=== PATIENT | male | born 1940 | race Caucasian/White ===

== ENCOUNTER 2018-01-29 07:54 | Emergency (ER) | payer MEDICARE, MEDICAID ==
[2018-01-29] MEDS ORDERED: Aspirin 81 MG Tab.Chew PO ONE (08:01)
[2018-01-29] MEDS ORDERED: Sodium Chloride 0.9% 10 ML Syringe FLUSH PRN (08:13)
[2018-01-29] MEDS ORDERED: Nitroglycerin 0.4 MG Tab.SL SL ONE ×3 (08:15→09:09)
--- NOTE | 2018-01-29 08:25 | EDM.PDOC ---
ED HPI GENERAL MEDICAL PROBLEM - General Chief Complaint: Chest Pain Stated Complaint: CHEST PAIN Time Seen by Provider: 01/29/18 08:00 Source of Information: Reports: Patient, Old Records History Limitations: Reports: No Limitations - History of Present Illness INITIAL COMMENTS - FREE TEXT/NARRATIVE: Justin comes to [facility] ED with a 14 hour hx of precordial chest pain that began while riding in a car as a passenger. The pain was substernal and epigastric rated 7-8/10, with some SOB but no palpitations or sweats. He took 1 TNG sl which improved pain to a 6/10, but took no additional tabs or ASA overnight. His pain was still present this am, associated with small emesis x 3 and malaise , prompting him to come to the ED. Upon arrival, a 12 lead ekg noted NSR with occ PVC, and minimal ST seg elevation in anterior leads. BP 179/87, VR 90, Temp 98 02 sat 100%. He was administered TNG sl x3, painfree within 45 minutes. MID CHEST Pain Score (Numeric/FACES): 7 - Related Data Allergies Allergy/AdvReac Type Severity Reaction Status Date / Time No Known Allergies Allergy Verified 01/29/18 08:01 Home Meds: Home Meds Amiodarone [Cordarone] 400 mg PO DAILY 03/06/16 [History] Aspirin 81 mg PO DAILY 03/06/16 [History] Cholecalciferol (Vitamin D3) [Vitamin D3] 1 tab PO BEDTIME 03/06/16 [History] Clopidogrel [Plavix] 75 mg PO DAILY 03/06/16 [History] Enalapril Maleate 1 tab PO BID 03/06/16 [History] Ferrous Sulfate 1 tab PO BEDTIME 03/06/16 [History] Fluticasone Propionate [Flonase] 50 mcg NASBOTH BID 03/06/16 [History] Isosorbide Mononitrate [Imdur] 30 mg PO DAILY 03/06/16 [History] Magnesium Oxide 400 mg PO BID #30 tab 03/06/16 [Rx] Multivitamin with Minerals [Multiple Vitamin] 1 tab PO BEDTIME 03/06/16 [History ] Nitroglycerin [Nitrostat] 0.4 mg PO ONETIME 03/06/16 [History] Pregabalin [Lyrica] 1 cap PO BID 03/06/16 [History] Sodium Chloride [Saline Nasal Forsan] 1 spray NASBOTH BID PRN 03/06/16 [History] amLODIPine [Norvasc] 1 tab PO DAILY 03/06/16 [History] atorvaSTATin [Lipitor] 40 mg PO BEDTIME 03/06/16 [History] metFORMIN [Glucophage] 1 tab PO BID 03/06/16 [History] Past Medical History Cardiovascular History: Reports: Blood Clots/VTE/DVT, CAD, SOB on Exertion Endocrine/Metabolic History: Reports: Diabetes, Type II, Other (See Below) Other Endocrine/Metabolic History: Pt stated he is a diet controlled diabetic - Past Surgical History Cardiovascular Surgical History: Reports: Cardiac Ablation ED ROS GENERAL - Review of Systems Review Of Systems: See Below Constitutional: Reports: Malaise, Decreased Appetite HEENT: Reports: No Symptoms Respiratory: Reports: No Symptoms Cardiovascular: Reports: Chest Pain, Dyspnea on Exertion (believed related to obesity and poor exercise tolerance), Edema (chronic) Endocrine: Reports: No Symptoms GI/Abdominal: Reports: Nausea, Vomiting : Reports: No Symptoms Musculoskeletal: Reports: No Symptoms Skin: Reports: No Symptoms Neurological: Reports: No Symptoms Psychiatric: Reports: No Symptoms Hematologic/Lymphatic: Reports: No Symptoms Immunologic: Reports: No Symptoms ED EXAM, GENERAL - Physical Exam Exam: See Below Exam Limited By: No Limitations General Appearance: Alert, WD/WN, Mild Distress, Obese Eye Exam: Bilateral Eye: EOMI, Normal Inspection, PERRL Ears: Normal External Exam Nose: Normal Inspection Throat/Mouth: Normal Inspection, Normal Oropharynx, Normal Voice Head: Normocephalic Neck: Normal Inspection, Supple, Non-Tender, Full Range of Motion Respiratory/Chest: Lungs Clear, Normal Breath Sounds, Chest Non-Tender Cardiovascular: Regular Rate, Rhythm, No Murmur, Extra Beats GI/Abdominal: Normal Bowel Sounds, Soft, Non-Tender, No Organomegaly, No Distention, No Mass (Male) Exam: Deferred Rectal (Males) Exam: Deferred Back Exam: Normal Inspection Extremities: Pedal Edema, Other (chronic stasis changes in both LE, scars from prior venous surgeries) Neurological: Alert, Oriented, CN II-XII Intact, Normal Cognition, Normal Gait, No Motor/Sensory Deficits Psychiatric: Normal Affect, Normal Mood Skin Exam: Warm, Dry, Intact Lymphatic: No Adenopathy Course - Vital Signs Text/Narrative:: Following assessment at the [facility] ED, an IV was inserted into the LUE, TNG x 3 sl produced pain remission within 45 minutes, ASA 81 mg x 4 administered. A chest x ray noted no active infiltrates, normal cardiac size; cbc noted Hgb 13.8 gm, WBC 8700, plts normal; CMP noted Na136, K 3.6, Cr 1.4, BUN 17, non FBS 219 mg%; Troponin I 0.019, BNP 412, d dimer 350. Case discussed with Dr Mckinney at [facility] regarding transfer for further assessment and Cardiology consultation. Patient is in agreement with plan. Last Recorded V/S: Last Vital Signs Temp 36.3 C 01/29/18 08:00 Pulse 93 01/29/18 08:00 Resp 17 01/29/18 08:00 BP 137/82 01/29/18 08:40 Pulse Ox 100 01/29/18 08:00 - Orders/Labs/Meds Orders: Active Orders 24 hr Category Date Time Status Chest 1V Frontal [CR] Stat Exams 01/29/18 08:13 Taken UA W/MICROSCOPIC [URIN] Stat Lab 01/29/18 09:00 Ordered Sodium Chloride 0.9% [Saline Flush] Med 01/29/18 08:13 Active 10 ml FLUSH ASDIRECTED PRN Peripheral IV Insertion Adult [OM.PC] Routine Oth 01/29/18 08:13 Ordered EKG 12 Lead [EK] Routine Ther 01/29/18 08:05 Ordered Medication Orders Sodium Chloride (Saline Flush) 10 ml FLUSH ASDIRECTED PRN PRN Reason: Keep Vein Open Last Admin: 01/29/18 08:08 Dose: 10 ml Labs: Laboratory Tests 01/29/18 01/29/18 01/29/18 Range/Units 08:15 08:15 08:15 WBC 8.7 (4.5-12.0) X10-3/uL RBC 4.45 (4.30-5.75) x10(6)uL Hgb 13.8 (11.5-15.5) g/dL Hct 41.4 (30.0-51.3) % MCV 92.8 (80-96) fL MCH 30.9 (27.7-33.6) pg MCHC 33.3 (32.2-35.4) g/dL RDW 13.6 (11.5-15.5) % Plt Count 213 (125-369) X10(3)uL MPV 8.5 (7.4-10.4) fL Neut % (Auto) 84.5 H (46-82) % Lymph % (Auto) 11.3 L (13-37) % Coal % (Auto) 3.8 L (4-12) % Eos % (Auto) 0 L (1.0-5.0) % Baso % (Auto) 0 (0-2) % Neut # (Auto) 7.4 (1.6-8.3) # Lymph # (Auto) 1.0 (0.6-5.0) # Coal # (Auto) 0.3 (0.0-1.3) # Eos # (Auto) 0.0 (0.0-0.8) # Baso # (Auto) 0.0 (0.0-0.2) # D-Dimer, Quantitative 350 (100-400) ng/mL Sodium 136 (135-145) mmol/L Potassium 3.6 (3.5-5.3) mmol/L Chloride 96 L (100-110) mmol/L Carbon Dioxide 26 (21-32) mmol/L BUN 17 (7-18) mg/dL Creatinine 1.4 H (0.70-1.30) mg/dL Est Cr Clr Drug Dosing 46.32 mL/min Estimated GFR (MDRD) 49 L (>60) BUN/Creatinine Ratio 12.1 (9-20) Glucose 219 H (80-116) mg/dL Calcium 9.2 (8.6-10.2) mg/dL Total Bilirubin 1.5 H (0.1-1.3) mg/dL AST 22 (5-25) IU/L ALT 28 (12-36) U/L Alkaline Phosphatase 78 (56-112) IU/L Troponin I (<0.017-0.056) ng/mL NT-Pro-B Natriuret Pep (<=450) pg/mL Total Protein 7.8 (6.0-8.0) g/dL Albumin 4.0 (3.2-4.6) g/dL Globulin 3.8 g/dL Albumin/Globulin Ratio 1.1 Urine Color (YELLOW) Urine Appearance (CLEAR) Urine pH (5.0-6.5) Ur Specific [place] (1.010-1.025) Urine Protein (NEGATIVE) mg/dL Urine Glucose (UA) (NEGATIVE) mg/dL Urine Ketones (NEGATIVE) mg/dL Urine Occult Blood (NEGATIVE) Urine Nitrite (NEGATIVE) Urine Bilirubin (NEGATIVE) Urine Urobilinogen (NEGATIVE) mg/dL Ur Leukocyte Esterase (NEGATIVE) Urine RBC (0) Urine WBC (0) Ur Squamous Epith Cells (NS,R,O) Urine Bacteria (NS) 01/29/18 01/29/18 Range/Units 08:15 09:00 WBC (4.5-12.0) X10-3/uL RBC (4.30-5.75) x10(6)uL Hgb (11.5-15.5) g/dL Hct (30.0-51.3) % MCV (80-96) fL MCH (27.7-33.6) pg MCHC (32.2-35.4) g/dL RDW (11.5-15.5) % Plt Count (125-369) X10(3)uL MPV (7.4-10.4) fL Neut % (Auto) (46-82) % Lymph % (Auto) (13-37) % Coal % (Auto) (4-12) % Eos % (Auto) (1.0-5.0) % Baso % (Auto) (0-2) % Neut # (Auto) (1.6-8.3) # Lymph # (Auto) (0.6-5.0) # Coal # (Auto) (0.0-1.3) # Eos # (Auto) (0.0-0.8) # Baso # (Auto) (0.0-0.2) # D-Dimer, Quantitative (100-400) ng/mL Sodium (135-145) mmol/L Potassium (3.5-5.3) mmol/L Chloride (100-110) mmol/L Carbon Dioxide (21-32) mmol/L BUN (7-18) mg/dL Creatinine (0.70-1.30) mg/dL Est Cr Clr Drug Dosing mL/min Estimated GFR (MDRD) (>60) BUN/Creatinine Ratio (9-20) Glucose (80-116) mg/dL Calcium (8.6-10.2) mg/dL Total Bilirubin (0.1-1.3) mg/dL AST (5-25) IU/L ALT (12-36) U/L Alkaline Phosphatase (56-112) IU/L Troponin I 0.019 (<0.017-0.056) ng/mL NT-Pro-B Natriuret Pep 412 (<=450) pg/mL Total Protein (6.0-8.0) g/dL Albumin (3.2-4.6) g/dL Globulin g/dL Albumin/Globulin Ratio Urine Color Yellow (YELLOW) Urine Appearance Clear (CLEAR) Urine pH 7.0 H (5.0-6.5) Ur Specific [place] 1.005 L (1.010-1.025) Urine Protein Negative (NEGATIVE) mg/dL Urine Glucose (UA) 250 H (NEGATIVE) mg/dL Urine Ketones 15 H (NEGATIVE) mg/dL Urine Occult Blood Negative (NEGATIVE) Urine Nitrite Negative (NEGATIVE) Urine Bilirubin Negative (NEGATIVE) Urine Urobilinogen Normal (NEGATIVE) mg/dL Ur Leukocyte Esterase Negative (NEGATIVE) Urine RBC Not seen (0) Urine WBC 0-5 (0) Ur Squamous Epith Cells Rare (NS,R,O) Urine Bacteria Rare H (NS) Meds: Medications Generic Name Dose Route Start Last Admin Trade Name Arpit PRN Reason Stop Dose Admin Sodium Chloride 10 ml 01/29/18 08:13 01/29/18 08:08 Saline Flush FLUSH 10 ml ASDIRECTED PRN Administration Keep Vein Open Discontinued Medications Generic Name Dose Route Start Last Admin Trade Name Arpit PRN Reason Stop Dose Admin Aspirin 324 mg 01/29/18 08:01 01/29/18 08:04 Aspirin PO 01/29/18 08:02 324 mg ONETIME ONE Administration Nitroglycerin 0.4 mg 01/29/18 08:15 01/29/18 08:10 Nitrostat SL 01/29/18 08:16 0.4 mg ONETIME ONE Administration Nitroglycerin 0.4 mg 01/29/18 08:30 01/29/18 08:30 Nitrostat SL 01/29/18 08:31 0.4 mg ONETIME ONE Administration Nitroglycerin 0.4 mg 01/29/18 09:09 01/29/18 08:40 Nitrostat SL 01/29/18 09:10 0.4 mg ONETIME ONE Administration Departure - Departure Time of Disposition: 10:09 Disposition: DC/Tfer to Other 70 Reason for Transfer *Q: Primary PCI Indicated Condition: Fair Clinical Impression: Chest pain due to CAD Instructions: Angina Pectoris, [id number] Referrals: Christina Hurtado, [employer] [Primary Care Provider] - Forms: ED Department Discharge - Problem List & Annotations (1) Chest pain due to CAD SNOMED Code(s): 799394861 Code(s): R07.9 - CHEST PAIN, UNSPECIFIED; I25.10 - ATHSCL HEART DISEASE OF [place] CORONARY ARTERY W/O ANG PCTRS Status: Acute Current Visit: Yes Annotation/Comment:: Transfer to [facility] for assessment and Cardiology consultation - Problem List Review Problem List Initiated/Reviewed/Updated: Yes - My Orders Last 24 Hours: My Active Orders 01/29/18 08:05 EKG 12 Lead [EK] Routine 01/29/18 08:13 Chest 1V Frontal [CR] Stat Sodium Chloride 0.9% [Saline Flush] 10 ml FLUSH ASDIRECTED PRN Peripheral IV Insertion Adult [OM.PC] Routine 01/29/18 09:00 UA W/MICROSCOPIC [URIN] Stat - Assessment/Plan Last 24 Hours: My Active Orders 01/29/18 08:05 EKG 12 Lead [EK] Routine 01/29/18 08:13 Chest 1V Frontal [CR] Stat Sodium Chloride 0.9% [Saline Flush] 10 ml FLUSH ASDIRECTED PRN Peripheral IV Insertion Adult [OM.PC] Routine 01/29/18 09:00 UA W/MICROSCOPIC [URIN] Stat Plan: Follow up with PCP.
[2018-01-29 12:11] VITALS: BP 160/82
--- NOTE | 2018-01-30 11:52 | CR ---
INDICATION: Chest pain. CHEST: Two AP upright views of the chest were obtained 01/29/2018 and compared with 03/06/2016, again revealing the heart to be prominent but not grossly enlarged. The aorta is tortuous with calcification in the arch. Overlying EKG leads are noted. A definite active infiltrate or effusion was not identified. IMPRESSION: No acute process - probable ASHD. MTDD
== END 2018-01-29 11:30 | disposition other institution (70) ==
LOC: FB.ED 07:54
DX: I25.10 Atherosclerotic heart disease of native coronary artery without angina pectoris (principal); E11.9 Type 2 diabetes mellitus without complications; Z79.82 Long term (current) use of aspirin; Z79.899 Other long term (current) drug therapy; Z79.84 Long term (current) use of oral hypoglycemic drugs
CPT/HCPCS: 71045; 80053; 81001; 83880; 84484; 85025; 85379; 93005; 99285; A9270; J7050

== ENCOUNTER 2022-03-08 12:21 | Emergency (ER) | payer MEDICARE, MEDICAID ==
[2022-03-08 12:53] LABS: ESTIMATED GFR 26 (>60)
[2022-03-08] MEDS ORDERED: Potassium Chloride 20 MEQ Tab.ER PO ONE (13:53)
[2022-03-08] MEDS ORDERED: Cephalexin 500 MG Cap PO ONE (14:24)
[2022-03-08 15:40] VITALS: BP 117/61; PULSE 74
== END 2022-03-08 14:55 | disposition home or self-care (01) ==
LOC: FB.ED 12:21
DX: L03.115 Cellulitis of right lower limb (principal); I25.10 Atherosclerotic heart disease of native coronary artery without angina pectoris; E11.9 Type 2 diabetes mellitus without complications; Z79.82 Long term (current) use of aspirin; Z79.899 Other long term (current) drug therapy; Z79.84 Long term (current) use of oral hypoglycemic drugs
CPT/HCPCS: 36415; 71046; 80048; 81001; 84484; 85027; 86140; 99283; A9270; 99285

== ENCOUNTER 2022-03-12 08:30 | Inpatient (IN) | payer MEDICARE, MEDICAID ==
[2022-03-12] MEDS ORDERED: Sodium Chloride 0.9% 10 ML Syringe FLUSH PRN (09:13)
[2022-03-12] MEDS ORDERED: Sodium Chloride 0.9% 500 ML IV ONE (09:17)
[2022-03-12 09:53] LABS: ESTIMATED GFR 28 mL/min (>60)
[2022-03-12] MEDS ORDERED: Haloperidol Lactate 5 MG/ML SDV IM ONE (15:38)
[2022-03-12] MEDS ORDERED: Acetaminophen 325 MG Tab PO PRN (16:06)
[2022-03-12] MEDS ORDERED: Glucagon,Human Recombinant 1 MG Vial IM PRN (16:06)
[2022-03-12] MEDS ORDERED: 50% Dextrose in Water 50 ML Syringe IVPUSH PRN (16:06)
[2022-03-12] MEDS ORDERED: Nitroglycerin 0.4 MG Tab.SL SL PRN (16:06)
[2022-03-12] MEDS ORDERED: Polyethylene Glycol 3350 Powder 17 GM Packet PO PRN (16:06)
[2022-03-12] MEDS ORDERED: Lactulose Soln 10 GM/15 ML 15 ML UD Cup PO PRN (16:06)
[2022-03-12] MEDS ORDERED: Calcium Carbonate 500 MG Tab.Chew PO PRN (16:59)
[2022-03-12] MEDS ORDERED: Insulin Lispro 100 Unit/ML 3 ML KwikPen SUBCUT PRN (17:03)
[2022-03-12] MEDS ORDERED: Enoxaparin 30 MG/0.3 ML Syringe SUBCUT ONE (17:11)
[2022-03-12] MEDS: CEPHALEXIN 500 MG PO SCH ×2 (18:03→20:44)
[2022-03-12] MEDS: Donepezil 10 MG Tab PO SCH (20:41)
[2022-03-12] MEDS: Divalproex Sodium Delayed-Release 250 MG Tab.CR PO SCH (20:42)
[2022-03-12] MEDS: Magnesium Oxide 400 MG Tab PO SCH (20:42)
[2022-03-12] MEDS: atorvaSTATin 40 MG Tab PO SCH (20:43)
[2022-03-12] MEDS: Gabapentin 100 MG Cap PO SCH (20:49)
[2022-03-12] MEDS: Insulin Glargine,Human Rec. Analog 100 Units/ML 3 ML Pen SUBCUT SCH (21:04)
[2022-03-13 06:42] LABS: ESTIMATED GFR 37 mL/min (>60)
[2022-03-13] MEDS: CEPHALEXIN 500 MG PO SCH ×4 (09:59→21:59)
[2022-03-13] MEDS: Tamsulosin 0.4 MG Cap.ER PO SCH (10:00)
[2022-03-13] MEDS: Aspirin 81 MG Tab.Chew PO SCH (10:00)
[2022-03-13] MEDS: Torsemide 20 MG Tab PO SCH (10:02)
[2022-03-13] MEDS: Magnesium Oxide 400 MG Tab PO SCH ×2 (10:03→21:54)
[2022-03-13] MEDS: Gabapentin 100 MG Cap PO SCH ×3 (10:04→21:54)
[2022-03-13] MEDS: Thiamine 100 MG Tab PO SCH (10:05)
[2022-03-13] MEDS: Isosorbide Mononitrate 30 MG Tab.ER PO SCH (10:45)
[2022-03-13] MEDS: Metoprolol Succinate 25 MG Tab.ER PO SCH (10:46)
[2022-03-13] MEDS: Divalproex Sodium Delayed-Release 250 MG Tab.CR PO SCH ×2 (16:44→21:53)
[2022-03-13] MEDS: Enoxaparin 40 MG/0.4 ML Syringe SUBCUT SCH (18:12)
[2022-03-13] MEDS: atorvaSTATin 40 MG Tab PO SCH (21:51)
[2022-03-13] MEDS: Donepezil 10 MG Tab PO SCH (21:51)
[2022-03-13] MEDS: Insulin Glargine,Human Rec. Analog 100 Units/ML 3 ML Pen SUBCUT SCH (22:06)
[2022-03-14] MEDS: Divalproex Sodium Delayed-Release 250 MG Tab.CR PO SCH ×3 (09:59→21:00)
[2022-03-14] MEDS: Torsemide 20 MG Tab PO SCH (09:59)
[2022-03-14] MEDS: Magnesium Oxide 400 MG Tab PO SCH ×2 (10:00→21:01)
[2022-03-14] MEDS: Thiamine 100 MG Tab PO SCH (10:00)
[2022-03-14] MEDS: CEPHALEXIN 500 MG PO SCH ×4 (10:01→21:00)
[2022-03-14] MEDS: Aspirin 81 MG Tab.Chew PO SCH (10:03)
[2022-03-14] MEDS: Metoprolol Succinate 25 MG Tab.ER PO SCH (10:03)
[2022-03-14 10:06] LABS: ESTIMATED GFR 43 mL/min (>60)
[2022-03-14] MEDS: Isosorbide Mononitrate 30 MG Tab.ER PO SCH (10:08)
[2022-03-14] MEDS: Tamsulosin 0.4 MG Cap.ER PO SCH (10:09)
[2022-03-14] MEDS: amLODIPine 5 MG Tab PO SCH (10:16)
[2022-03-14] MEDS: Acetaminophen 500 MG Tab PO SCH ×3 (10:27→21:01)
[2022-03-14] MEDS: Gabapentin 100 MG Cap PO SCH ×3 (10:27→21:07)
[2022-03-14] MEDS: Enoxaparin 40 MG/0.4 ML Syringe SUBCUT SCH (18:57)
[2022-03-14] MEDS: Donepezil 10 MG Tab PO SCH (21:00)
[2022-03-14] MEDS: atorvaSTATin 40 MG Tab PO SCH (21:01)
[2022-03-14] MEDS: Insulin Glargine,Human Rec. Analog 100 Units/ML 3 ML Pen SUBCUT SCH (21:07)
[2022-03-14] MEDS: Haloperidol 5 MG Tab PO PRN (23:28)
[2022-03-15 06:50] LABS: ESTIMATED GFR 37 mL/min (>60)
[2022-03-15] MEDS: Divalproex Sodium Delayed-Release 250 MG Tab.CR PO SCH ×3 (08:20→21:08)
[2022-03-15] MEDS: Haloperidol 5 MG Tab PO PRN ×3 (08:20→23:38)
[2022-03-15] MEDS: Aspirin 81 MG Tab.Chew PO SCH (08:22)
[2022-03-15] MEDS: Torsemide 20 MG Tab PO SCH (08:23)
[2022-03-15] MEDS: Tamsulosin 0.4 MG Cap.ER PO SCH (08:24)
[2022-03-15] MEDS: Magnesium Oxide 400 MG Tab PO SCH ×3 (08:24→21:03)
[2022-03-15] MEDS: Acetaminophen 500 MG Tab PO SCH ×3 (08:25→21:09)
[2022-03-15] MEDS: Thiamine 100 MG Tab PO SCH (08:25)
[2022-03-15] MEDS: Gabapentin 100 MG Cap PO SCH ×3 (08:32→21:18)
[2022-03-15] MEDS: Metoprolol Succinate 25 MG Tab.ER PO SCH (08:38)
[2022-03-15] MEDS: amLODIPine 5 MG Tab PO SCH (08:40)
[2022-03-15] MEDS: Isosorbide Mononitrate 30 MG Tab.ER PO SCH (09:53)
[2022-03-15] MEDS: Enoxaparin 40 MG/0.4 ML Syringe SUBCUT SCH (18:13)
[2022-03-15] MEDS: atorvaSTATin 40 MG Tab PO SCH (21:06)
[2022-03-15] MEDS: Donepezil 10 MG Tab PO SCH (21:20)
[2022-03-15] MEDS: Insulin Glargine,Human Rec. Analog 100 Units/ML 3 ML Pen SUBCUT SCH ×2 (21:28→21:35)
[2022-03-16 07:33] LABS: ESTIMATED GFR 46 mL/min (>60)
[2022-03-16] MEDS: Divalproex Sodium Delayed-Release 250 MG Tab.CR PO SCH ×3 (08:29→21:16)
[2022-03-16] MEDS: Torsemide 20 MG Tab PO SCH (08:30)
[2022-03-16] MEDS: Aspirin 81 MG Tab.Chew PO SCH (08:30)
[2022-03-16] MEDS: Gabapentin 100 MG Cap PO SCH ×3 (08:33→21:14)
[2022-03-16] MEDS: Magnesium Oxide 400 MG Tab PO SCH ×2 (08:33→21:09)
[2022-03-16] MEDS: Isosorbide Mononitrate 30 MG Tab.ER PO SCH (08:33)
[2022-03-16] MEDS: Metoprolol Succinate 25 MG Tab.ER PO SCH (08:34)
[2022-03-16] MEDS: Haloperidol 5 MG Tab PO PRN ×2 (08:35→21:23)
[2022-03-16] MEDS: Thiamine 100 MG Tab PO SCH (08:36)
[2022-03-16] MEDS: Tamsulosin 0.4 MG Cap.ER PO SCH (08:36)
[2022-03-16] MEDS: Acetaminophen 500 MG Tab PO SCH ×3 (08:37→21:10)
[2022-03-16] MEDS: Enoxaparin 40 MG/0.4 ML Syringe SUBCUT SCH (18:54)
[2022-03-16] MEDS: atorvaSTATin 40 MG Tab PO SCH (21:08)
[2022-03-16] MEDS: Donepezil 10 MG Tab PO SCH (21:11)
[2022-03-16] MEDS ORDERED: Insulin Glargine,Human Rec. Analog 100 Units/ML 3 ML Pen SUBCUT ONE (22:10)
[2022-03-16] MEDS: Insulin Glargine,Human Rec. Analog 100 Units/ML 3 ML Pen SUBCUT SCH (22:13)
[2022-03-17] MEDS: Gabapentin 100 MG Cap PO SCH ×3 (08:27→20:52)
[2022-03-17] MEDS: Aspirin 81 MG Tab.Chew PO SCH (08:27)
[2022-03-17] MEDS: Magnesium Oxide 400 MG Tab PO SCH ×2 (08:28→20:52)
[2022-03-17] MEDS: Divalproex Sodium Delayed-Release 250 MG Tab.CR PO SCH ×3 (08:28→20:51)
[2022-03-17] MEDS: Torsemide 20 MG Tab PO SCH (08:28)
[2022-03-17] MEDS: Isosorbide Mononitrate 30 MG Tab.ER PO SCH (08:29)
[2022-03-17] MEDS: Tamsulosin 0.4 MG Cap.ER PO SCH (08:31)
[2022-03-17] MEDS: Thiamine 100 MG Tab PO SCH (08:32)
[2022-03-17] MEDS: Acetaminophen 500 MG Tab PO SCH ×3 (08:32→20:53)
[2022-03-17] MEDS: amLODIPine 5 MG Tab PO SCH (08:33)
[2022-03-17] MEDS: Metoprolol Succinate 25 MG Tab.ER PO SCH (08:36)
[2022-03-17] MEDS: Polyvinyl Alcohol 1.4% Ophth Soln 15 ML Bottle EYEBOTH SCH ×3 (13:53→20:52)
[2022-03-17] MEDS: Enoxaparin 40 MG/0.4 ML Syringe SUBCUT SCH (17:11)
[2022-03-17] MEDS: Donepezil 10 MG Tab PO SCH (20:51)
[2022-03-17] MEDS: atorvaSTATin 40 MG Tab PO SCH (20:51)
[2022-03-17] MEDS: Insulin Glargine,Human Rec. Analog 100 Units/ML 3 ML Pen SUBCUT SCH (20:55)
[2022-03-17] MEDS: Haloperidol 5 MG Tab PO PRN (21:56)
[2022-03-18 06:42] LABS: ESTIMATED GFR 43 mL/min (>60)
[2022-03-18] MEDS: Gabapentin 100 MG Cap PO SCH ×3 (08:10→20:20)
[2022-03-18] MEDS: Divalproex Sodium Delayed-Release 250 MG Tab.CR PO SCH ×3 (08:10→20:18)
[2022-03-18] MEDS: Tamsulosin 0.4 MG Cap.ER PO SCH (08:11)
[2022-03-18] MEDS: Thiamine 100 MG Tab PO SCH (08:11)
[2022-03-18] MEDS: Magnesium Oxide 400 MG Tab PO SCH ×2 (08:11→20:20)
[2022-03-18] MEDS: Aspirin 81 MG Tab.Chew PO SCH (08:11)
[2022-03-18] MEDS: Metoprolol Succinate 25 MG Tab.ER PO SCH (08:12)
[2022-03-18] MEDS: Polyvinyl Alcohol 1.4% Ophth Soln 15 ML Bottle EYEBOTH SCH ×4 (08:13→20:18)
[2022-03-18] MEDS: Torsemide 20 MG Tab PO SCH (08:14)
[2022-03-18] MEDS: Isosorbide Mononitrate 30 MG Tab.ER PO SCH (08:15)
[2022-03-18] MEDS: Acetaminophen 500 MG Tab PO SCH ×3 (08:15→20:19)
[2022-03-18] MEDS: Enoxaparin 40 MG/0.4 ML Syringe SUBCUT SCH (17:15)
[2022-03-18] MEDS: Donepezil 10 MG Tab PO SCH (20:17)
[2022-03-18] MEDS: atorvaSTATin 40 MG Tab PO SCH (20:18)
[2022-03-18] MEDS: Insulin Glargine,Human Rec. Analog 100 Units/ML 3 ML Pen SUBCUT SCH (20:33)
[2022-03-19] MEDS: Aspirin 81 MG Tab.Chew PO SCH (08:18)
[2022-03-19] MEDS: Gabapentin 100 MG Cap PO SCH ×3 (08:18→20:55)
[2022-03-19] MEDS: Torsemide 20 MG Tab PO SCH (08:19)
[2022-03-19] MEDS: Metoprolol Succinate 25 MG Tab.ER PO SCH (08:19)
[2022-03-19] MEDS: Magnesium Oxide 400 MG Tab PO SCH ×2 (08:19→20:52)
[2022-03-19] MEDS: Acetaminophen 500 MG Tab PO SCH ×3 (08:20→20:52)
[2022-03-19] MEDS: Thiamine 100 MG Tab PO SCH (08:22)
[2022-03-19] MEDS: Divalproex Sodium Delayed-Release 250 MG Tab.CR PO SCH ×3 (08:22→20:50)
[2022-03-19] MEDS: Tamsulosin 0.4 MG Cap.ER PO SCH (08:23)
[2022-03-19] MEDS: Isosorbide Mononitrate 30 MG Tab.ER PO SCH (08:24)
[2022-03-19] MEDS: Polyvinyl Alcohol 1.4% Ophth Soln 15 ML Bottle EYEBOTH SCH ×4 (08:24→20:50)
[2022-03-19] MEDS: Polyethylene Glycol 3350 Powder 17 GM Packet PO SCH (10:34)
[2022-03-19] MEDS: Enoxaparin 40 MG/0.4 ML Syringe SUBCUT SCH (17:16)
[2022-03-19] MEDS: Donepezil 10 MG Tab PO SCH (20:49)
[2022-03-19] MEDS: atorvaSTATin 40 MG Tab PO SCH (20:50)
[2022-03-19] MEDS: Insulin Glargine,Human Rec. Analog 100 Units/ML 3 ML Pen SUBCUT SCH (20:51)
[2022-03-20] MEDS: Divalproex Sodium Delayed-Release 250 MG Tab.CR PO SCH (08:03)
[2022-03-20] MEDS: Aspirin 81 MG Tab.Chew PO SCH (08:03)
[2022-03-20] MEDS: Isosorbide Mononitrate 30 MG Tab.ER PO SCH (08:10)
[2022-03-20] MEDS: Torsemide 20 MG Tab PO SCH (08:10)
[2022-03-20] MEDS: Tamsulosin 0.4 MG Cap.ER PO SCH (08:10)
[2022-03-20] MEDS: Polyethylene Glycol 3350 Powder 17 GM Packet PO SCH (08:11)
[2022-03-20] MEDS: Metoprolol Succinate 25 MG Tab.ER PO SCH (08:11)
[2022-03-20] MEDS: Gabapentin 100 MG Cap PO SCH (08:11)
[2022-03-20] MEDS: Polyvinyl Alcohol 1.4% Ophth Soln 15 ML Bottle EYEBOTH SCH (08:11)
[2022-03-20] MEDS: Magnesium Oxide 400 MG Tab PO SCH (08:11)
[2022-03-20] MEDS: Thiamine 100 MG Tab PO SCH (08:12)
[2022-03-20] MEDS: Acetaminophen 500 MG Tab PO SCH (08:12)
[2022-03-20 08:13] VITALS: BP 141/65; PULSE 56
== END 2022-03-20 10:00 | DRG 641 ==
LOC: FB.ED 08:30 → FB.MS 13:54 → UNDOADMOB 14:39 → FB.MS 14:39 → OBSVTOIN 03-14 09:46
PROVIDERS: ADMIT Emergency Medicine; ATTEND Family Medicine
DX: E86.0 Dehydration (principal); F02.81 Dementia in other diseases classified elsewhere, unspecified severity, with behavioral disturbance; L97.421 Non-pressure chronic ulcer of left heel and midfoot limited to breakdown of skin; L03.115 Cellulitis of right lower limb; R26.2 Difficulty in walking, not elsewhere classified; G30.1 Alzheimer's disease with late onset; G25.0 Essential tremor; L97.429 Non-pressure chronic ulcer of left heel and midfoot with unspecified severity; N18.9 Chronic kidney disease, unspecified; I12.9 Hypertensive chronic kidney disease with stage 1 through stage 4 chronic kidney disease, or unspecified chronic kidney disease; N18.32 Chronic kidney disease, stage 3b; E11.22 Type 2 diabetes mellitus with diabetic chronic kidney disease; I25.10 Atherosclerotic heart disease of native coronary artery without angina pectoris; Z86.718 Personal history of other venous thrombosis and embolism; R13.19 Other dysphagia; Z96.642 Presence of left artificial hip joint; E66.9 Obesity, unspecified; E83.42 Hypomagnesemia; Z86.16 Personal history of COVID-19; Z79.4 Long term (current) use of insulin; Z79.82 Long term (current) use of aspirin; Z79.899 Other long term (current) drug therapy; Z68.32 Body mass index [BMI] 32.0-32.9, adult
CPT/HCPCS: 36415; 70450; 71045; 80048; 80053; 81001; 82947; 83605; 83735; 84484; 85025; 86140; 93005; 93010; 96372; 97116-GP; 97161-GP; 97165-GO; 97530-GO; 97535-GO; 99220; 99226; 99233; 99239; 99285; 99285-25; A9270-GY; G0378; J1630; J1650; J1815; J1815-GY; J3490; J7040